=== PATIENT | female | born 1990 | race Caucasian/White ===

== ENCOUNTER 2017-01-02 14:55 | Emergency (ER) | payer SELFPAY ==
[2017-01-02] MEDS ORDERED: Cephalexin 250 MG CAP ONE (15:29)
[2017-01-02] MEDS ORDERED: Naproxen 500 MG TAB ONE (15:29)
[2017-01-02] MEDS ORDERED: Sulfameth/Trimethoprim DS 800-160mg TAB ONE (15:29)
[2017-01-02] MEDS ORDERED: HYDROcodone/Acetaminophen 10/325 mg Tablet ONE (15:29)
[2017-01-02] MEDS ORDERED: Adacel (T-DAP) 0.5 ML VIAL ONE (15:40)
== END 2017-01-02 15:45 | disposition home or self-care (01) ==
LOC: MADERS 14:55
DX: L02.211 Cutaneous abscess of abdominal wall (principal)
CPT/HCPCS: 90471; 90715